=== PATIENT | male | born 1945 | race Caucasian/White ===

== ENCOUNTER 2019-08-06 00:10 | Emergency (ER) | payer MEDICARE ==
[~2019-08-06] VITALS: Ht 175.3 cm; Wt 82.6 kg
[2019-08-06] MEDS ORDERED: PIPERACILLIN /TAZOBACTAM 3.375 G VIAL IV ONE (00:51)
[2019-08-06] MEDS ORDERED: TDAP [DIPH/PERTUSSIS/TET] 0.5 ML VIAL IM ONE ×2 (01:00→01:20)
[2019-08-06] MEDS ORDERED: PIPERACILLIN /TAZOBACTAM 3.375 G in IV D5W 50 ML IV ONE (01:00)
--- NOTE | 2019-08-06 01:00 | NUR ---
BIBSELF WITH . TO ER BED 9. AAOX4. NO RESP DISTRESS NOTED. AMBULATORY. C/O R WRIST CAT BITE @ 11:30AM. PT REPORTS PAIN 5/10, NOTED SWELLING AND REDNESS WHICH IS TRACKING UP TO THE ARM UP TO AC. PT REPORTS THAT CAT IS DOMESTICATED AND BELONGS TO HIS SON, ALL VACCINATIONS OF CAT IS UPTO DATE. PT DOES NOT KNOW WHEN WAS HIS LAST TETANUS VACCINE. MD AT BEDSIDE FOR EVAL. ORDERS RECEIVED, NOTED AND CARRIED OUT.
--- NOTE | 2019-08-06 01:40 | NUR ---
Patient discharged to home in stable condition. Written and verbal after care instructions given. Patient verbalizes understanding of instruction.IV removed. Catheter intact and site benign. Pressure and 4x4 applied to site. No bleeding noted. Pt ambulatory with a steady gait
[2019-08-06 01:41] VITALS: BP 152/78
== END 2019-08-06 01:41 | disposition home or self-care (01) ==
LOC: ER 00:15
DX: S61.531A Puncture wound without foreign body of right wrist, initial encounter (principal); I10 Essential (primary) hypertension; Z95.5 Presence of coronary angioplasty implant and graft; Z85.820 Personal history of malignant melanoma of skin; Z90.89 Acquired absence of other organs; Z88.2 Allergy status to sulfonamides; W55.01XA Bitten by cat, initial encounter; Y93.89 Activity, other specified; Y92.89 Other specified places as the place of occurrence of the external cause; Y99.8 Other external cause status
CPT/HCPCS: 90471; 90715; 96365; 99283; J2543 ×2; J7060